=== PATIENT | male | born 1990 | race American Indian/Alaskan Native ===

== ENCOUNTER 2017-09-15 11:48 | Observation (INO) | payer SELFPAY ==
[2017-09-15] MEDS ORDERED: Sodium Chloride 0.9% 1,000 ML IV STA ×2 (12:51→15:20)
[2017-09-15] MEDS ORDERED: Sodium Chloride 0.9% 1,000 ML ONE ×3 (12:59→18:31)
[2017-09-15 13:02] LABS: BASO # 0.1 K/uL (0.0-0.2); BASO % 0.3 % (0.0-2.0); EOS # 0.1 K/uL (0.0-0.7); EOS % 0.4 % (0.0-4.0); HEMOGLOBIN 14.1 g/dL (12.0-18.0); LYMPH # 1.6 K/uL (1.0-4.3); LYMPH % 7.2 % (20.0-40.0); MEAN CELL VOLUME 96.8 fL (80.0-94.0); MEAN CORPUSCULAR HEMOGLOBIN 33.6 pg (27.0-31.0); MEAN CORPUSCULAR HGB CONC 34.7 g/dL (33.0-37.0); MEAN PLATELET VOLUME 8.7 fL (7.2-11.7); MONO # 1.3 K/uL (0.0-0.8); MONO % 5.9 % (0.0-10.0); NEUT # 18.6 K/uL (1.8-7.0); NEUT % 86.2 % (50.0-75.0); PLATELET COUNT 209 K/uL (130-400); RED CELL DISTRIBUTION WIDTH 12.1 % (11.5-14.5); WHITE BLOOD COUNT 21.6 K/uL (4.8-10.8)
[2017-09-15 13:03] LABS: URINE BACTERIA RARE (<OCC); URINE BILIRUBIN NEGATIVE (NEGATIVE); URINE BLOOD 1+ (NEGATIVE); URINE CLARITY Clear (Clear); URINE COLOR Yellow (YELLOW); URINE GLUCOSE (UA) NORMAL (Normal); URINE LEUKOCYTE ESTERASE NEG Leu/uL (Negative); URINE PROTEIN NEGATIVE (NEGATIVE); URINE UROBILINOGEN NORMAL mg/dL (0.2-1.0)
[2017-09-15 13:13] LABS: ALB/GLOB RATIO 1.5 (1.0-2.1); ALBUMIN 4.6 g/dL (3.5-5.0); CALCIUM 8.7 mg/dl (8.6-10.4); GFR AFRICAN-AMERICAN > 60; GFR NON-AFRICAN AMERICAN > 60; LIPASE 56 U/L (23-300)
[2017-09-15 13:15] LABS: ALT/SGPT 26 U/L (21-72); AST/SGOT 30 U/L (17-59); BLOOD UREA NITROGEN 17 mg/dL (9-20)
--- NOTE | 2017-09-15 13:30 | C.PDOC ---
History Of Present Illness 26-year-old male, denies significant PMHx, presents to the emergency department with complaints of left flank pain that started this morning. Associated symptoms include nausea and two episodes of non-bloody/non-bilious vomiting. Patient denies fever, chills, symptoms, rash, or any other associated symptoms. No other complaints at this time. Time Seen by Provider: 09/15/17 12:08 Chief Complaint (Nursing): Abdominal Pain History Per: Patient History/Exam Limitations: no limitations Onset/Duration Of Symptoms: Hrs Current Symptoms Are (Timing): Still Present Severity: Moderate Past Medical History Reviewed: Historical Data, Nursing Documentation, Vital Signs Vital Signs: Last Vital Signs Temp 97.5 F L 09/15/17 11:57 Pulse 72 09/15/17 16:17 Resp 14 09/15/17 16:17 BP 115/71 09/15/17 16:17 Pulse Ox 100 09/15/17 17:46 Family History: States: No Known Family Hx - Social History Hx Alcohol Use: No Hx Substance Use: No - Immunization History Hx Tetanus Toxoid Vaccination: No Hx Influenza Vaccination: No Hx Pneumococcal Vaccination: No Review Of Systems Constitutional: Negative for: Fever Cardiovascular: Negative for: Chest Pain Respiratory: Negative for: Shortness of Breath Gastrointestinal: Positive for: Nausea. Negative for: Vomiting Genitourinary: Negative for: Dysuria, Frequency, Hematuria Musculoskeletal: Positive for: Back Pain Physical Exam - Physical Exam Appears: Non-toxic, Other (in pain, actively vomiting) Skin: Normal Color, Warm, Dry, No Rash Head: Atraumatic, Normacephalic Eye(s): bilateral: Normal Inspection Nose: Normal Oral Mucosa: Moist Lips: Normal Appearing Neck: Normal ROM Chest: Symmetrical Cardiovascular: Rhythm Regular, No Murmur Respiratory: Normal Breath Sounds, No Accessory Muscle Use Gastrointestinal/Abdominal: Soft, No Tenderness Back: CVA Tenderness (left) Extremity: Normal ROM, No Deformity, No Swelling Neurological/Psych: Oriented x3, Normal Speech, Normal Cognition ED Course And Treatment - Laboratory Results Result Diagrams: 09/15/17 12:57 09/15/17 12:57 O2 Sat by Pulse Oximetry: 100 (RA) Pulse Ox Interpretation: Normal - CT Scan/US Abdomen/Pelvis CT Other Rad Studies (CT/US): Read By Radiologist, Radiology Report Reviewed CT/US Interpretation: PROCEDURE: CT Abdomen and Pelvis without intravenous contrast. HISTORY: left flank pain. COMPARISON: None. TECHNIQUE: Multiple contiguous axial images were performed through the abdomen and pelvis without the use of intravenous contrast. Subsequently, sagittal and coronal reformatted images were obtained. Radiation dose: Total exam DLP = 208 mGy- cm. This CT exam was performed using one or more of the following dose reduction techniques: Automated exposure control, adjustment of the mA and/or kV according to patient size, and/or use of iterative reconstruction technique. FINDINGS: LOWER THORAX: Unremarkable. LIVER: Unremarkable. No gross lesion or ductal dilatation. GALLBLADDER AND BILE DUCTS: Unremarkable. PANCREAS: Unremarkable. No gross lesion or ductal dilatation. Limited visualization without contrast. SPLEEN: Unremarkable. Splenules. ADRENALS: Unremarkable. No mass. KIDNEYS AND URETERS: Mild to moderate left hydroureteronephrosis of the left renal collecting system and ureter. There is a 3-4 millimeter echogenic calculus/calcification at the level of the distal left ureter which may represent obstructing calculi. Alternatively, this may represent a calcified phlebolith. Clinical correlation. VASCULATURE: Unremarkable. No aortic aneurysm. BOWEL: Limited visualization of the bowel without contrast. Portions of the transverse and descending colon are not well visualized without contrast. If there is concern for bowel pathology, consider a contrast-enhanced CT scan. APPENDIX: Unremarkable. Normal appendix. PERITONEUM: Unremarkable. No free fluid. No free air. LYMPH NODES: Few shotty para-aortic and inguinal lymph nodes. Few shotty mesenteric lymph nodes. BLADDER: Unremarkable. REPRODUCTIVE: Unremarkable. BONES: Small lucencies at the anterior superior aspects of the L3 and L4 vertebral bodies may represent congenital anomalies. OTHER FINDINGS: None. IMPRESSION: 1. Mild to moderate left hydroureteronephrosis of the left renal collecting system and ureter. There is a 3-4 millimeter echogenic calculus/calcification at the level of the distal left ureter which may represent an obstructing calculus. Alternatively, this may represent a calcified phlebolith. Clinical correlation. 2. Limited visualization of the bowel without contrast. Portions of the transverse and descending colon are not well visualized without contrast. If there is concern for bowel pathology, consider a contrast-enhanced CT scan. Progress Note: Bloodwork and UA ordered and reviewed. Patient treated with Protonix, IVFs, Toradol and Zofran. Pts labs show WBC 21.6 and urine shows 15 RBC, will order CT abd/pelvis. CT shows left hydronephrosis/hydrourether, obstructing 4 mm stone. Lidocaine IV, Flomax po given. Case was d/c Urologist who instructed to start patient on Rocephin IV. Patient still c/o severe flank pain, Morphine IV ordered. Case was d/w Hospitalist who accepted patient to [facility] for observation. Disposition - Disposition Disposition: HOSPITALIZED Disposition Time: 17:28 Condition: FAIR Forms: [employer] ([place]) - Clinical Impression Clinical Impression: Renal colic on left side, Leucocytosis - Scribe Statement The provider has reviewed the documentation as recorded by the Scribe (Charan Florez) All medical record entries made by the Scribe were at my direction and personally dictated by me. I have reviewed the chart and agree that the record accurately reflects my personal performance of the history, physical exam, medical decision making, and the department course for this patient. I have also personally directed, reviewed, and agree with the discharge instructions and disposition. Decision To Admit - Pt Status Changed To: Hospital Disposition Of: Observation - . Bed Request Type: Regular Admitting Physician: Danny Teague (') Patient Diagnosis: Renal colic on left side, Leucocytosis
[2017-09-15 14:44] LABS: EOSINOPHIL 2 % (0-4); LYMPHOCYTE 7 % (20-40); MONOCYTE 8 % (0-10); NEUTROPHIL 83 % (50-75); PLATELET ESTIMATE NORMAL (NORMAL); TOTAL CELLS COUNTED 100
--- NOTE | 2017-09-15 15:11 | CT ---
PROCEDURE: CT Abdomen and Pelvis without intravenous contrast HISTORY: left flank pain COMPARISON: None. TECHNIQUE: Multiple contiguous axial images were performed through the abdomen and pelvis without the use of intravenous contrast. Subsequently, sagittal and coronal reformatted images were obtained. Radiation dose: Total exam DLP = 208 mGy-cm. This CT exam was performed using one or more of the following dose reduction techniques: Automated exposure control, adjustment of the mA and/or kV according to patient size, and/or use of iterative reconstruction technique. FINDINGS: LOWER THORAX: Unremarkable. LIVER: Unremarkable. No gross lesion or ductal dilatation. GALLBLADDER AND BILE DUCTS: Unremarkable. PANCREAS: Unremarkable. No gross lesion or ductal dilatation. Limited visualization without contrast. SPLEEN: Unremarkable. Splenules. ADRENALS: Unremarkable. No mass. KIDNEYS AND URETERS: Mild to moderate left hydroureteronephrosis of the left renal collecting system and ureter. There is a 3-4 millimeter echogenic calculus/calcification at the level of the distal left ureter which may represent obstructing calculi. Alternatively, this may represent a calcified phlebolith. Clinical correlation. VASCULATURE: Unremarkable. No aortic aneurysm. BOWEL: Limited visualization of the bowel without contrast. Portions of the transverse and descending colon are not well visualized without contrast. If there is concern for bowel pathology, consider a contrast-enhanced CT scan. APPENDIX: Unremarkable. Normal appendix. PERITONEUM: Unremarkable. No free fluid. No free air. LYMPH NODES: Few shotty para-aortic and inguinal lymph nodes. Few shotty mesenteric lymph nodes. BLADDER: Unremarkable. REPRODUCTIVE: Unremarkable. BONES: Small lucencies at the anterior superior aspects of the L3 and L4 vertebral bodies may represent congenital anomalies. OTHER FINDINGS: None. IMPRESSION: 1. Mild to moderate left hydroureteronephrosis of the left renal collecting system and ureter. There is a 3-4 millimeter echogenic calculus/calcification at the level of the distal left ureter which may represent an obstructing calculus. Alternatively, this may represent a calcified phlebolith. Clinical correlation. 2. Limited visualization of the bowel without contrast. Portions of the transverse and descending colon are not well visualized without contrast. If there is concern for bowel pathology, consider a contrast-enhanced CT scan.
[2017-09-15] MEDS ORDERED: Lidocaine 95 MG in Sodium Chloride 0.9% 100 ML IV STA (15:19)
--- NOTE | 2017-09-15 17:46 | CP.PCM.HP ---
<Orlin Slater - Last Filed: 09/15/17 18:39> History of Present Illness - History of Present Illness History of Present Illness: PGY-2 H&P for Dr. Teague's service: CC: flank pain HPI: Patient is a 26 year old male, who denies PMHx, presents to [facility] ED for flank pain. Pain started at 9AM this morning when he woke up. Describes pain as a "burning sensation" in his lower back into his groin region. Pain initially was 5/10, but kept getting worse over the course of the day. He states he is able to urinate without pain, and denies flynn hematuria. Pain associated with nausea, and two episodes of non-bilious/bloody vomiting this AM. Denies fever, chills, chest pain, abdominal pain or SOB. Denies prior history, or family history, of kidney stones. PMHx: denies PSHx: Jaw surgery (fracture - 2006) SHx: Tobacco 2-3 cigs per day x 5 yrs; denies EtOH; former marijuana smoker - no use in "couple months"; unemployed Allergies: NKA Fam Hx: denies PMD: none Home meds: denies Present on Admission - Present on Admission Any Indicators Present on Admission: No History of DVT/PE: No History of Uncontrolled Diabetes: No Review of Systems - Constitutional Constitutional: absent: Chills, Fever, Weakness - EENT Eyes: absent: Change in Vision - Cardiovascular Cardiovascular: absent: Chest Pain, Dyspnea - Respiratory Respiratory: absent: Cough - Gastrointestinal Gastrointestinal: Nausea, Vomiting. absent: Abdominal Pain - Genitourinary Genitourinary: absent: Dysuria, Hematuria - Musculoskeletal Musculoskeletal: Back Pain (flank pain). absent: Numbness, Tingling - Integumentary Integumentary: absent: Dry Skin, Wounds - Neurological Neurological: absent: Dizziness, Numbness, Tingling, Weakness - Psychiatric Psychiatric: absent: Anxiety, Depression - Endocrine Endocrine: absent: Palpitations Past Patient History - Past Social History Smoking Status: Light Smoker < 10 Cigarettes Daily - PSYCHIATRIC Hx Substance Use: No - SURGICAL HISTORY Hx Surgeries: No - ANESTHESIA Hx Anesthesia: No Meds Allergies/Adverse Reactions: Allergies Allergy/AdvReac Type Severity Reaction Status Date / Time No Known Allergies Allergy Verified 09/15/17 11:55 Physical Exam - Constitutional Appears: Non-toxic, No Acute Distress - Head Exam Head Exam: ATRAUMATIC, NORMAL INSPECTION - Eye Exam Eye Exam: EOMI. absent: Scleral icterus Pupil Exam: PERRL - ENT Exam ENT Exam: Mucous Membranes Moist - Neck Exam Neck exam: Positive for: Full Rom - Respiratory Exam Respiratory Exam: Clear to Auscultation Bilateral, NORMAL BREATHING PATTERN. absent: Rales, Rhonchi, Wheezes - Cardiovascular Exam Cardiovascular Exam: REGULAR RHYTHM, +S1, +S2 - GI/Abdominal Exam GI & Abdominal Exam: Normal Bowel Sounds, Soft. absent: Tenderness - Extremities Exam Extremities exam: Positive for: normal inspection. Negative for: pedal edema, tenderness - Back Exam Back exam: CVA tenderness (L) (mitesh sign positive). absent: CVA tenderness (R) - Neurological Exam Neurological exam: Alert, Oriented x3 - Psychiatric Exam Psychiatric exam: Normal Affect, Normal Mood - Skin Skin Exam: Normal Color, Warm Results - Vital Signs Recent Vital Signs: Last Vital Signs Temp 97.5 F L 09/15/17 11:57 Pulse 72 09/15/17 16:17 Resp 14 09/15/17 16:17 BP 115/71 09/15/17 16:17 Pulse Ox 100 09/15/17 17:44 - Labs Result Diagrams: 09/15/17 12:57 09/15/17 12:57 Labs: Laboratory Results - last 24 hr 09/15/17 09/15/17 09/15/17 12:47 12:57 12:57 WBC 21.6 H RBC 4.20 L Hgb 14.1 Hct 40.6 MCV 96.8 H MCH 33.6 H MCHC 34.7 RDW 12.1 Plt Count 209 MPV 8.7 Neut % (Auto) 86.2 H Lymph % (Auto) 7.2 L [place] % (Auto) 5.9 Eos % (Auto) 0.4 Baso % (Auto) 0.3 Neut # (Auto) 18.6 H Lymph # (Auto) 1.6 [place] # (Auto) 1.3 H Eos # (Auto) 0.1 Baso # (Auto) 0.1 Neutrophils % (Manual) 83 H Lymphocytes % (Manual) 7 L Monocytes % (Manual) 8 Eosinophils % (Manual) 2 Platelet Estimate Normal RBC Morphology Normal Sodium 140 Potassium 3.6 Chloride 104 Carbon Dioxide 23 Anion Gap 16 BUN 17 Creatinine 0.9 Est GFR ( Amer) > 60 Est GFR (Non-Af Amer) > 60 Random Glucose 119 H Calcium 8.7 Total Bilirubin 1.6 H AST 30 ALT 26 Alkaline Phosphatase 56 Total Protein 7.6 Albumin 4.6 Globulin 3.0 Albumin/Globulin Ratio 1.5 Lipase 56 Urine Color Yellow Urine Clarity Clear Urine pH 8.0 Ur Specific [place] 1.020 Urine Protein Negative Urine Glucose (UA) Normal Urine Ketones 1+ H Urine Blood 1+ H Urine Nitrate Negative Urine Bilirubin Negative Urine Urobilinogen Normal Ur Leukocyte Esterase Neg Urine WBC (Auto) 2 Urine RBC (Auto) 15 H Urine Bacteria Rare Assessment & Plan - Assessment and Plan (Free Text) Plan: Nephrolithiasis Observe on med/surg Afebrile, WBC 21.6 CT A/P (09/15/17): 1. Mild to moderate left hydroureteronephrosis of the left renal collecting system and ureter. There is a 3-4 millimeter echogenic calculus /calcification at the level of the distal left ureter which may represent an obstructing calculus. Alternatively, this may represent a calcified phlebolith. Clinical correlation. 2. Limited visualization of the bowel without contrast. Portions of the transverse and descending colon are not well visualized without contrast. If there is concern for bowel pathology, consider a contrast-enhanced CT scan. UA (09/15/17) 1+ blood Dr. Hooper, urology operational risk consultant - help appreciated - f/u reccs Ceftriaxone 1gm Q12H (start 09/15/17) Flomax 0.4 mg PO Daily Toradol 30mg IV for moderate pain, Morphine 2mg IV for severe pain NS @ 200 cc/hr f/u blood and urine cultures Leukocytosis WBC 21.6 - with left shift, no bandemia Ceftriaxone 1gm Q12H (start 09/15/17) Prophylaxis SCDs Hold VTE pending possible surg procedure GI not indicated Orlin Slater PGY02 D/w Dr. Teague <Danny Teague H - Last Filed: 09/15/17 19:01> Results - Vital Signs Recent Vital Signs: Last Vital Signs Temp 97.5 F L 09/15/17 11:57 Pulse 78 09/15/17 18:32 Resp 17 09/15/17 18:32 BP 131/73 09/15/17 18:32 Pulse Ox 99 09/15/17 18:32 - Labs Result Diagrams: 09/15/17 12:57 09/15/17 12:57 Labs: Laboratory Results - last 24 hr 09/15/17 09/15/17 09/15/17 12:47 12:57 12:57 WBC 21.6 H RBC 4.20 L Hgb 14.1 Hct 40.6 MCV 96.8 H MCH 33.6 H MCHC 34.7 RDW 12.1 Plt Count 209 MPV 8.7 Neut % (Auto) 86.2 H Lymph % (Auto) 7.2 L [place] % (Auto) 5.9 Eos % (Auto) 0.4 Baso % (Auto) 0.3 Neut # (Auto) 18.6 H Lymph # (Auto) 1.6 [place] # (Auto) 1.3 H Eos # (Auto) 0.1 Baso # (Auto) 0.1 Neutrophils % (Manual) 83 H Lymphocytes % (Manual) 7 L Monocytes % (Manual) 8 Eosinophils % (Manual) 2 Platelet Estimate Normal RBC Morphology Normal Sodium 140 Potassium 3.6 Chloride 104 Carbon Dioxide 23 Anion Gap 16 BUN 17 Creatinine 0.9 Est GFR ( Amer) > 60 Est GFR (Non-Af Amer) > 60 Random Glucose 119 H Calcium 8.7 Total Bilirubin 1.6 H AST 30 ALT 26 Alkaline Phosphatase 56 Total Protein 7.6 Albumin 4.6 Globulin 3.0 Albumin/Globulin Ratio 1.5 Lipase 56 Urine Color Yellow Urine Clarity Clear Urine pH 8.0 Ur Specific [place] 1.020 Urine Protein Negative Urine Glucose (UA) Normal Urine Ketones 1+ H Urine Blood 1+ H Urine Nitrate Negative Urine Bilirubin Negative Urine Urobilinogen Normal Ur Leukocyte Esterase Neg Urine WBC (Auto) 2 Urine RBC (Auto) 15 H Urine Bacteria Rare Attending/Attestation - Attestation I have personally seen and examined this patient.: Yes I have fully participated in the care of the patient.: Yes I have reviewed all pertinent clinical information: Yes Notes (Text): 09/15/17 18:59 Medical attending: Patient was seen and examined by me earlier in the day. Agree with the above note by the resident The patient was in less pain he said when we saw and examined him. Will give IVF, he needs to strain urine for potential stones. Also IV morphine and IV Toradol for pain The patient had a CT scan done showing 4mm stone Left side He will need IV abx, cultures of blood and urine as he does have an elevated WBC count thank you Danny Teague
[2017-09-15] MEDS ORDERED: cefTRIAXone IV 1 gm in Dextros 50 ML IVPB ONE (18:14)
[2017-09-15] MEDS ORDERED: Morphine 4 MG/ML VIAL ONE (18:14)
[2017-09-15] MEDS: Sodium Chloride 0.9% 1,000 ML IV SCH ×3 (18:25→23:03)
[2017-09-15 20:41] VITALS: BMI 17.4
[2017-09-16 01:00] VITALS: RESP 20
[2017-09-16] MEDS: Sodium Chloride 0.9% 1,000 ML IV SCH ×4 (04:12→19:29)
--- NOTE | 2017-09-16 07:20 | CP.PCM.PN ---
<Orlni Slater - Last Filed: 09/16/17 10:04> Subjective - Date & Time of Evaluation Date of Evaluation: 09/16/17 Time of Evaluation: 07:18 - Subjective Subjective: PGY02 note for Dr. Teague's service: Pt seen and examined at bedside. Nursing reports no acute events overnight. Pt reports improved pain in his left flank. He states he is urinating often and is straining the urine each time. Denies passing stone overnight. Admits vomiting twice overnight (non-bloody). Denies subjective fever, chills, chest pain, SOB. Objective - Vital Signs/Intake and Output Vital Signs (last 24 hours): Temp Pulse Resp BP Pulse Ox 98.9 F 66 20 131/82 99 09/16/17 00:00 09/16/17 00:00 09/16/17 00:00 09/16/17 00:00 09/16/17 00:00 Intake and Output: 09/16/17 09/16/17 06:59 18:59 Intake Total 500 1600 Output Total 200 Balance 300 1600 - Medications Medications: Current Medications Sodium Chloride (Sodium Chloride 0.9%) 1,000 mls @ 200 mls/hr IV .Q5H [facility] Last Admin: 09/16/17 04:12 Dose: 200 mls/hr Ceftriaxone Sodium 1 gm/ (Sodium Chloride) 100 mls @ 100 mls/hr IVPB Q12H [facility] PRN Reason: Protocol Last Admin: 09/16/17 05:39 Dose: 100 mls/hr Ketorolac Tromethamine (Toradol) 30 mg IVP Q6 PRN PRN Reason: Pain, moderate (4-7) Last Admin: 09/15/17 21:23 Dose: 30 mg Morphine Sulfate (Morphine) 2 mg IVP Q3H PRN PRN Reason: Pain, severe (8-10) Ondansetron HCl (Zofran Inj) 4 mg IVP Q6 PRN PRN Reason: Nausea/Vomiting Tamsulosin HCl (Flomax) 0.4 mg PO DAILY [facility] - Labs Labs: 09/15/17 12:57 09/15/17 12:57 - Additional Findings Additional findings: - Constitutional Appears: Non-toxic, No Acute Distress - Head Exam Head Exam: ATRAUMATIC, NORMAL INSPECTION - Eye Exam Eye Exam: EOMI. absent: Scleral icterus Pupil Exam: PERRL - ENT Exam ENT Exam: Mucous Membranes Moist - Neck Exam Neck exam: Positive for: Full Rom - Respiratory Exam Respiratory Exam: Clear to Auscultation Bilateral, NORMAL BREATHING PATTERN. absent: Rales, Rhonchi, Wheezes - Cardiovascular Exam Cardiovascular Exam: REGULAR RHYTHM, +S1, +S2 - GI/Abdominal Exam GI & Abdominal Exam: Normal Bowel Sounds, Soft. absent: Tenderness - Extremities Exam Extremities exam: Positive for: normal inspection. Negative for: pedal edema, tenderness - Back Exam Back exam: CVA tenderness (L) (mitesh sign positive). absent: CVA tenderness (R) - improved tenderness today - Neurological Exam Neurological exam: Alert, Oriented x3 - Psychiatric Exam Psychiatric exam: Normal Affect, Normal Mood - Skin Skin Exam: Normal Color, Warm Assessment and Plan - Assessment and Plan (Free Text) Plan: Nephrolithiasis Observe on med/surg Afebrile, WBC 21.6 CT A/P (09/15/17): 1. Mild to moderate left hydroureteronephrosis of the left renal collecting system and ureter. There is a 3-4 millimeter echogenic calculus /calcification at the level of the distal left ureter which may represent an obstructing calculus. Alternatively, this may represent a calcified phlebolith. Clinical correlation. 2. Limited visualization of the bowel without contrast. Portions of the transverse and descending colon are not well visualized without contrast. If there is concern for bowel pathology, consider a contrast-enhanced CT scan. UA (09/15/17) 1+ blood Dr. Hooper, urology [employer] sales consultant - help appreciated - f/u reccs Ceftriaxone 1gm Q12H (start 09/15/17) Flomax 0.4 mg PO Daily Toradol 30mg IV for moderate pain, Morphine 2mg IV for severe pain NS @ 200 cc/hr f/u blood and urine cultures Leukocytosis WBC 21.6 with left shift, no bandemia - on admission - improved today (15.1) Ceftriaxone 1gm Q12H (start 09/15/17) Electrolyte abnormality Mg 1.7 repleted Prophylaxis SCDs Hold VTE pending possible surg procedure GI not indicated Orlin Slater PGY02 D/w Dr. Teague <Danny Teague - Last Filed: 09/16/17 11:27> Objective - Vital Signs/Intake and Output Vital Signs (last 24 hours): Temp Pulse Resp BP Pulse Ox 98.3 F 61 20 117/71 98 09/16/17 07:25 09/16/17 07:25 09/16/17 07:25 09/16/17 07:25 09/16/17 07:25 Intake and Output: 09/16/17 09/16/17 06:59 18:59 Intake Total 500 1600 Output Total 200 Balance 300 1600 - Medications Medications: Current Medications Sodium Chloride (Sodium Chloride 0.9%) 1,000 mls @ 200 mls/hr IV .Q5H [facility] Last Admin: 09/16/17 09:25 Dose: 200 mls/hr Ceftriaxone Sodium 1 gm/ (Sodium Chloride) 100 mls @ 100 mls/hr IVPB Q12H [facility] PRN Reason: Protocol Last Admin: 09/16/17 05:39 Dose: 100 mls/hr Ketorolac Tromethamine (Toradol) 30 mg IVP Q6 PRN PRN Reason: Pain, moderate (4-7) Last Admin: 09/15/17 21:23 Dose: 30 mg Morphine Sulfate (Morphine) 2 mg IVP Q3H PRN PRN Reason: Pain, severe (8-10) Ondansetron HCl (Zofran Inj) 4 mg IVP Q6 PRN PRN Reason: Nausea/Vomiting Tamsulosin HCl (Flomax) 0.4 mg PO DAILY [facility] Last Admin: 09/16/17 09:24 Dose: 0.4 mg - Labs Labs: 09/16/17 07:43 09/16/17 07:43 Attending/Attestation - Attestation I have personally seen and examined this patient.: Yes I have fully participated in the care of the patient.: Yes I have reviewed all pertinent clinical information, including history, physical exam and plan: Yes Notes (Text): 09/16/17 11:24 Medical attending: Patient was seen and examined by me, agree with the above note by the resident The patient explained that he was is less pain than when we saw him last night in ER The patient WBC has decreased. Afebrile. The cultures are pending. Conintue with the Rocephin and also IVF and flomax Danny Teague
[2017-09-16 07:53] LABS: BASO % 0.1 % (0.0-2.0); EOS # 0.1 K/uL (0.0-0.7); EOS % 0.7 % (0.0-4.0); HEMOGLOBIN 13.1 g/dL (12.0-18.0); LYMPH # 1.8 K/uL (1.0-4.3); LYMPH % 12.1 % (20.0-40.0); MEAN CELL VOLUME 97.5 fL (80.0-94.0); MEAN CORPUSCULAR HEMOGLOBIN 33.2 pg (27.0-31.0); MEAN PLATELET VOLUME 9.1 fL (7.2-11.7); MONO # 1.7 K/uL (0.0-0.8); MONO % 11.4 % (0.0-10.0); NEUT # 11.4 K/uL (1.8-7.0); NEUT % 75.7 % (50.0-75.0); RBC 3.95 Mil/uL (4.40-5.90); RED CELL DISTRIBUTION WIDTH 12.1 % (11.5-14.5); WHITE BLOOD COUNT 15.1 K/uL (4.8-10.8)
[2017-09-16 08:22] LABS: ALB/GLOB RATIO 1.2 (1.0-2.1); ALBUMIN 3.2 g/dL (3.5-5.0); ALT/SGPT 26 U/L (21-72); AST/SGOT 36 U/L (17-59); BLOOD UREA NITROGEN 12 mg/dL (9-20); CALCIUM 8.6 mg/dl (8.6-10.4); GFR AFRICAN-AMERICAN > 60; GFR NON-AFRICAN AMERICAN > 60
[2017-09-16] MEDS ORDERED: Magnesium Sulfate 1 gm in D5W 1 GM/100 ML BAG IVPB ONE (10:01)
--- NOTE | 2017-09-16 12:56 | CP.PCM.PN ---
Subjective - Date & Time of Evaluation Date of Evaluation: 09/16/17 Time of Evaluation: 12:52 - Subjective Subjective: 26 year old male admitted w l renal colic and wbc wbc is decreasing on present antibiotics,C&S pending Ct shows possible small distal uureteral calclui(3 to 4 mm)Suggest Continue antibiotics adjust as per + C&S continue present rx strain all urine for stone. Sandie Objective - Vital Signs/Intake and Output Vital Signs (last 24 hours): Temp Pulse Resp BP Pulse Ox 98.3 F 61 20 117/71 98 09/16/17 07:25 09/16/17 07:25 09/16/17 07:25 09/16/17 07:25 09/16/17 07:25 Intake and Output: 09/16/17 09/16/17 06:59 18:59 Intake Total 500 1600 Output Total 200 Balance 300 1600 - Medications Medications: Current Medications Sodium Chloride (Sodium Chloride 0.9%) 1,000 mls @ 200 mls/hr IV .Q5H [facility] Last Admin: 09/16/17 09:25 Dose: 200 mls/hr Ceftriaxone Sodium 1 gm/ (Sodium Chloride) 100 mls @ 100 mls/hr IVPB Q12H [facility] PRN Reason: Protocol Last Admin: 09/16/17 05:39 Dose: 100 mls/hr Ketorolac Tromethamine (Toradol) 30 mg IVP Q6 PRN PRN Reason: Pain, moderate (4-7) Last Admin: 09/15/17 21:23 Dose: 30 mg Morphine Sulfate (Morphine) 2 mg IVP Q3H PRN PRN Reason: Pain, severe (8-10) Ondansetron HCl (Zofran Inj) 4 mg IVP Q6 PRN PRN Reason: Nausea/Vomiting Tamsulosin HCl (Flomax) 0.4 mg PO DAILY [facility] Last Admin: 09/16/17 09:24 Dose: 0.4 mg - Labs Labs: 09/16/17 07:43 09/16/17 07:43
[2017-09-16] MEDS: Morphine 4 MG/ML VIAL IVP PRN (20:12)
[2017-09-16] MEDS ORDERED: POLYETHYLENE GLYCOL 3350 17 GM/Dose PACKET PO ONE (22:15)
[2017-09-17] MEDS: Morphine 4 MG/ML VIAL IVP PRN (00:49)
[2017-09-17] MEDS: Sodium Chloride 0.9% 1,000 ML IV SCH ×4 (00:50→11:36)
--- NOTE | 2017-09-17 06:49 | CON ---
DATE: 09/16/2017 TIME OF CONSULTATION: 1 p.m. CHIEF COMPLAINT: Left flank pain. HISTORY OF PRESENT ILLNESS: The patient was admitted to the hospital from the emergency room because of left flank pain and leucocytosis. Since in the hospital, the patient has had very little pain. The patient noted to have 25,000 white count when in hospital. He was admitted for IV antibiotics and pain control. Workup showed 3 to 4 mm calculus at the ureterovesical junction. Since being in the hospital, the patient's white count has dropped to 15,000. The patient gives no history of prior urinary calculus. REVIEW OF SYSTEMS: RESPIRATORY: The patient has no respiratory complaints. GI: The patient has no GI complaints. URINARY: The patient's only urinary complaint is left flank pain with no radiation. SOCIAL AND FAMILY HISTORY: Noncontributory, except for the patient has no family in the area. PHYSICAL EXAMINATION: VITAL SIGNS: Within normal limits. Temperature is 98.3. HEENT: Head, ears, eyes, nose and throat are within normal limits. NECK: Supple. There are no bruits, nodes or masses. CHEST: Clear bilaterally. There is rales or rhonchi. ABDOMEN: Soft and nontender without any anterior abdominal tenderness, guarding or rebound. There is no abdominal mass. There is no CVA tenderness. RECTAL: Declined by the patient. EXTREMITIES: Normal. LABORATORY DATA: I have also reviewed the CAT scan films and report and also the laboratory data. IMPRESSION: Left renal colic, possible passed renal calculi, suggest to follow. The patient should stay on Flomax and tramadol as necessary, since the white count has dropped on the present antibiotics. Suggest continue antibiotics until culture is known. If culture is positive, switch to antibiotics based on sensitivity pattern, if the culture is negative, I would suggest keeping the patient on broad spectrum antibiotics p.o. at home for one week after discharge. The patient should have urological followup within one month. No intervention is contemplated on this admission. Shahab Hooper MD
[2017-09-17 07:33] LABS: BASO % 0.3 % (0.0-2.0); EOS # 0.1 K/uL (0.0-0.7); EOS % 1.3 % (0.0-4.0); HEMOGLOBIN 12.6 g/dL (12.0-18.0); LYMPH # 2.1 K/uL (1.0-4.3); LYMPH % 20.4 % (20.0-40.0); MEAN CELL VOLUME 97.9 fL (80.0-94.0); MEAN CORPUSCULAR HEMOGLOBIN 33.7 pg (27.0-31.0); MEAN CORPUSCULAR HGB CONC 34.4 g/dL (33.0-37.0); MONO # 1.1 K/uL (0.0-0.8); MONO % 10.6 % (0.0-10.0); NEUT # 6.9 K/uL (1.8-7.0); NEUT % 67.4 % (50.0-75.0); RBC 3.73 Mil/uL (4.40-5.90); RED CELL DISTRIBUTION WIDTH 11.9 % (11.5-14.5); WHITE BLOOD COUNT 10.2 K/uL (4.8-10.8)
[2017-09-17 07:51] LABS: ALB/GLOB RATIO 1.2 (1.0-2.1); ALBUMIN 3.2 g/dL (3.5-5.0); ALT/SGPT 24 U/L (21-72); AST/SGOT 29 U/L (17-59); BLOOD UREA NITROGEN 8 mg/dL (9-20); CALCIUM 8.8 mg/dl (8.6-10.4); GFR AFRICAN-AMERICAN > 60; GFR NON-AFRICAN AMERICAN > 60
[2017-09-17 08:36] VITALS: BP 126/72; PULSE 67; TEMP 98.4; O2SAT 98
--- NOTE | 2017-09-17 13:02 | CP.PCM.DIS ---
Provider - Provider Date of Admission: 09/15/17 17:42 Attending physician: Doug Thomas MD Consults: Sandie Time Spent in preparation of Discharge (in minutes): 55 Hospital Course - Lab Results Lab Results: Micro Results 09/15/17 18:11 Urine Urine Culture - Final Lactobacillus Species 09/15/17 18:45 Blood-Venous Blood Culture - Preliminary NO GROWTH AFTER 24 HOURS 09/15/17 18:15 Blood-Venous Blood Culture - Preliminary NO GROWTH AFTER 24 HOURS Most Recent Lab Values WBC 10.2 K/uL (4.8-10.8) 09/17/17 07:27 RBC 3.73 Mil/uL (4.40-5.90) L 09/17/17 07:27 Hgb 12.6 g/dL (12.0-18.0) 09/17/17 07:27 Hct 36.5 % (35.0-51.0) 09/17/17 07:27 MCV 97.9 fL (80.0-94.0) H 09/17/17 07:27 MCH 33.7 pg (27.0-31.0) H 09/17/17 07:27 MCHC 34.4 g/dL (33.0-37.0) 09/17/17 07:27 RDW 11.9 % (11.5-14.5) 09/17/17 07:27 Plt Count 160 K/uL (130-400) 09/17/17 07:27 MPV 9.0 fL (7.2-11.7) 09/17/17 07:27 Neut % (Auto) 67.4 % (50.0-75.0) 09/17/17 07:27 Lymph % (Auto) 20.4 % (20.0-40.0) 09/17/17 07:27 [place] % (Auto) 10.6 % (0.0-10.0) H 09/17/17 07:27 Eos % (Auto) 1.3 % (0.0-4.0) 09/17/17 07:27 Baso % (Auto) 0.3 % (0.0-2.0) 09/17/17 07:27 Neut # (Auto) 6.9 K/uL (1.8-7.0) 09/17/17 07:27 Lymph # (Auto) 2.1 K/uL (1.0-4.3) 09/17/17 07:27 [place] # (Auto) 1.1 K/uL (0.0-0.8) H 09/17/17 07:27 Eos # (Auto) 0.1 K/uL (0.0-0.7) 09/17/17 07:27 Baso # (Auto) 0.0 K/uL (0.0-0.2) 09/17/17 07:27 Neutrophils % (Manual) 83 % (50-75) H 09/15/17 12:57 Lymphocytes % (Manual) 7 % (20-40) L 09/15/17 12:57 Monocytes % (Manual) 8 % (0-10) 09/15/17 12:57 Eosinophils % (Manual) 2 % (0-4) 09/15/17 12:57 Platelet Estimate Normal (NORMAL) 09/15/17 12:57 RBC Morphology Normal 09/15/17 12:57 Sodium 141 mmol/L (132-148) 09/17/17 07:27 Potassium 3.9 mmol/L (3.6-5.2) 09/17/17 07:27 Chloride 110 mmol/L (98-107) H 09/17/17 07:27 Carbon Dioxide 24 mmol/L (22-30) 09/17/17 07:27 Anion Gap 11 (10-20) 09/17/17 07:27 BUN 8 mg/dL (9-20) L 09/17/17 07:27 Creatinine 1.0 mg/dL (0.8-1.5) 09/17/17 07:27 Est GFR ( Amer) > 60 09/17/17 07:27 Est GFR (Non-Af Amer) > 60 09/17/17 07:27 Random Glucose 84 mg/dL (75-110) 09/17/17 07:27 Calcium 8.8 mg/dl (8.6-10.4) 09/17/17 07:27 Phosphorus 2.8 mg/dL (2.5-4.5) 09/17/17 07:27 Magnesium 1.9 mg/dL (1.6-2.3) 09/17/17 07:27 Total Bilirubin 1.1 mg/dL (0.2-1.3) 09/17/17 07:27 AST 29 U/L (17-59) 09/17/17 07:27 ALT 24 U/L (21-72) 09/17/17 07:27 Alkaline Phosphatase 46 U/L (38-126) 09/17/17 07:27 Total Protein 5.9 g/dL (6.3-8.3) L 09/17/17 07:27 Albumin 3.2 g/dL (3.5-5.0) L 09/17/17 07:27 Globulin 2.7 gm/dL (2.2-3.9) 09/17/17 07:27 Albumin/Globulin Ratio 1.2 (1.0-2.1) 09/17/17 07:27 Lipase 56 U/L (23-300) 09/15/17 12:57 Urine Color Yellow (YELLOW) 09/15/17 12:47 Urine Clarity Clear (Clear) 09/15/17 12:47 Urine pH 8.0 (5.0-8.0) 09/15/17 12:47 Ur Specific [place] 1.020 (1.003-1.030) 09/15/17 12:47 Urine Protein Negative mg/dL (NEGATIVE) 09/15/17 12:47 Urine Glucose (UA) Normal mg/dL (Normal) 09/15/17 12:47 Urine Ketones 1+ mg/dL (NEGATIVE) H 09/15/17 12:47 Urine Blood 1+ (NEGATIVE) H 09/15/17 12:47 Urine Nitrate Negative (NEGATIVE) 09/15/17 12:47 Urine Bilirubin Negative (NEGATIVE) 09/15/17 12:47 Urine Urobilinogen Normal mg/dL (0.2-1.0) 09/15/17 12:47 Ur Leukocyte Esterase Neg [place]/uL (Negative) 09/15/17 12:47 Urine WBC (Auto) 2 /hpf (0-5) 09/15/17 12:47 Urine RBC (Auto) 15 /hpf (0-3) H 09/15/17 12:47 Urine Bacteria Rare (<OCC) 09/15/17 12:47 - Hospital Course Hospital Course: Upon Admission: CC: flank pain HPI: Patient is a 26 year old male, who denies PMHx, presents to [facility] ED for flank pain. Pain started at 9AM this morning when he woke up. Describes pain as a "burning sensation" in his lower back into his groin region. Pain initially was 5/10, but kept getting worse over the course of the day. He states he is able to urinate without pain, and denies flynn hematuria. Pain associated with nausea, and two episodes of non-bilious/bloody vomiting this AM. Denies fever, chills, chest pain, abdominal pain or SOB. Denies prior history, or family history, of kidney stones. PMHx: denies PSHx: Jaw surgery (fracture - 2006) SHx: Tobacco 2-3 cigs per day x 5 yrs; denies EtOH; former marijuana smoker - no use in "couple months"; unemployed Allergies: NKA Fam Hx: denies PMD: none Home meds: denies Throughout Hospital Admission: Nephrolithiasis Observe on med/surg Afebrile, WBC 21.6 CT A/P (09/15/17): 1. Mild to moderate left hydroureteronephrosis of the left renal collecting system and ureter. There is a 3-4 millimeter echogenic calculus /calcification at the level of the distal left ureter which may represent an obstructing calculus. Alternatively, this may represent a calcified phlebolith. Clinical correlation. 2. Limited visualization of the bowel without contrast. Portions of the transverse and descending colon are not well visualized without contrast. If there is concern for bowel pathology, consider a contrast-enhanced CT scan. UA (09/15/17) 1+ blood Ceftriaxone 1gm Q12H (start 09/15/17) Flomax 0.4 mg PO Daily Toradol 30mg IV for moderate pain, Morphine 2mg IV for severe pain NS @ 200 cc/hr blood and urine cultures: negative Dr. Hooper, urology product management consultant - help appreciated - will follow up with him as outpatient in 1 month. Will DC with Cipro 500mg by mouth Q12 x 7 days. Leukocytosis -- > RESOLVED WBC 21.6 with left shift, no bandemia - on admission - improved today (15.1) Ceftriaxone 1gm Q12H (start 09/15/17) Please review EMR for full record, as this is a brief summary. Discharge Exam - Additional Findings Additional findings: - Constitutional Appears: Non-toxic, No Acute Distress - Head Exam Head Exam: ATRAUMATIC, NORMAL INSPECTION - Eye Exam Eye Exam: EOMI. absent: Scleral icterus Pupil Exam: PERRL - ENT Exam ENT Exam: Mucous Membranes Moist - Neck Exam Neck exam: Positive for: Full Rom - Respiratory Exam Respiratory Exam: Clear to Auscultation Bilateral, NORMAL BREATHING PATTERN. absent: Rales, Rhonchi, Wheezes - Cardiovascular Exam Cardiovascular Exam: REGULAR RHYTHM, +S1, +S2 - GI/Abdominal Exam GI & Abdominal Exam: Normal Bowel Sounds, Soft. absent: Tenderness - Extremities Exam Extremities exam: Positive for: normal inspection. Negative for: pedal edema, tenderness - Back Exam Back exam: CVA tenderness (L) (mitesh sign positive). absent: CVA tenderness (R) - improved tenderness today - Neurological Exam Neurological exam: Alert, Oriented x3 - Psychiatric Exam Psychiatric exam: Normal Affect, Normal Mood - Skin Skin Exam: Normal Color, Warm Discharge Plan - Discharge Medications Prescriptions: Ciprofloxacin HCl [Cipro] 500 mg PO Q12 #14 tab Saccharomyces Boulardi [Florastor] 250 mg PO Q12 #60 cap - Follow Up Plan Condition: FAIR Disposition: HOME/ ROUTINE Instructions: Ciprofloxacin (Systemic), Saccharomyces boulardii, Renal Colic ( DC), Leukocytosis (DC), Renal Colic (DC), Renal Colic (GEN) Additional Instructions: Please follow up with Dr. Hooper in 1 month. Please see a primary care physician for routine checks. Please continue taking Ciprofloxacin 500mg by mouth TWICE a day. Also take Florastor which is a probiotic TWICE A DAY for 1 month (please take 2 hours before you take your antibiotics; this is to prevent any nausea, vomiting, or diarrhea that can happen when you take any antibiotic). Please take care and be well. Referrals: Shahab Hooper Jr., MD [Staff Provider] -
== END 2017-09-17 15:30 | disposition home or self-care (01) ==
LOC: C.ER 11:48 → C.9E 17:42 → C.5S 19:16
PROVIDERS: ADMIT Hospitalist; ATTEND Internal Medicine
DX: N13.2 Hydronephrosis with renal and ureteral calculous obstruction (principal); D72.829 Elevated white blood cell count, unspecified; F17.210 Nicotine dependence, cigarettes, uncomplicated
CPT/HCPCS: 36415; 74176; 80053; 81001; 83690; 83735; 84100; 85025; 87040; 87086; 96361; 96365; 96366; 96367; 96375; 96376; 99285; C9113; G0378; J0696; J1885; J2001; J2270; J2405; J3475; J7040